=== PATIENT | female | born 1935 | race Caucasian/White ===

== ENCOUNTER 2019-06-10 22:42 | Inpatient (IN) | payer OTHER ==
[~2019-06-10] VITALS: Ht 162.6 cm; Wt 75.1 kg
[2019-06-10] MEDS ORDERED: LABETALOL HCL 5 MG/ML 20 ML VIAL IVP ONE (22:55)
[2019-06-10] MEDS ORDERED: NICARDipine 20 MG/DEXT,ISO-OSM 200 ML IV PRN (23:00)
[2019-06-10] MEDS ORDERED: HydrALAZINE HCL 20 MG/ML VIAL ONE (23:00)
[2019-06-10] MEDS ORDERED: HydrALAZINE HCL 20 MG/ML VIAL IVP ONE (23:00)
[2019-06-10 23:06] LABS: INR 1.1 (0.9-1.1)
[2019-06-10 23:11] LABS: ANION GAP 13 mmol/L (8-16); BASOPHILS % (AUTO) 0.2 % (0.0-2.0); CALCIUM, TOTAL 9.4 mg/dL (8.8-10.5); CARBON DIOXIDE 23 mmol/L (22-29); CHLORIDE 101 mmol/L (98-107); CREATININE 0.86 mg/dL (0.60-1.30); EOSINOPHILS % (AUTO) 0 % (1.0-6.0); GLUCOSE,RANDOM 187 mg/dL (70-110); HEMATOCRIT 37.6 % (36-46); HEMOGLOBIN 12.6 g/dL (12.0-16.0); LYMPHOCYTES # (AUTO) 0.7 K/uL (1.0-4.8); LYMPHOCYTES % (AUTO) 7.5 % (22.0-44.0); MEAN CORPUSCULAR HEMOGLOBIN 31.9 pg (26.0-34.0); MEAN CORPUSCULAR HGB CONC 33.6 G/dL (31.0-37.0); MEAN CORPUSCULAR VOLUME 95 fL (80-100); MONOCYTES # (AUTO) 0.3 K/uL (0.1-1.0); MONOCYTES % (AUTO) 2.7 % (2.0-9.0); NEUTROPHILS # (AUTO) 8.5 K/uL (1.8-7.7); PLATELET COUNT (AUTO) 170 K/uL (150-450); RED BLOOD CELL COUNT(AUTO) 3.96 MIL/uL (4.00-5.20); RED CELL DISTRIBUTION WIDTH 13.7 % (11.5-14.5); SODIUM SERUM 137 mmol/L (136-145); UREA NITROGEN, BLOOD 18 mg/dL (7-18)
[2019-06-10 23:12] LABS: GLOMERULAR FILTR. RATE CALC > 60 mL/min (>60)
[2019-06-10] MEDS ORDERED: BISACODYL 10 MG RECTAL RECTAL SUPPOSITORY PR PRN (23:15)
[2019-06-10] MEDS ORDERED: ONDANSETRON HCL 4 MG/2 ML VIAL IVP PRN (23:15)
[2019-06-10] MEDS ORDERED: NiCARDipine HCL 25 MG in DEXTROSE 5%-WATER 240 ML IV PRN (23:15)
[2019-06-10 23:17] LABS: ALANINE AMINOTRANSFERASE 17 U/L (12-78); ALBUMIN 3.9 g/dL (3.4-5.0); ALKALINE PHOSPHATASE 94 U/L (46-116); ASPARTATE AMINOTRANSFERASE 21 U/L (15-37); BILIRUBIN,TOTAL 0.7 mg/dL (0.1-1.0); TOTAL PROTEIN, SERUM 7.2 g/dL (6.4-8.2)
[2019-06-10 23:26] LABS: NEUTROPHILS % (AUTO) 89.6 % (40.0-70.0)
[2019-06-10] MEDS ORDERED: DEXTROSE 50%-WATER 25 GM/50 ML SYRINGE IVP PRN (23:30)
[2019-06-10] MEDS ORDERED: INSULIN LISPRO 100 UNITS/ML SQ PRN (23:30)
[2019-06-10 23:40] LABS: APPEARANCE,URINE CLEAR (CLEAR); BILIRUBIN,URINE NEGATIVE (NEGATIVE); GLUCOSE, URINE (UA) NEGATIVE (NEGATIVE); KETONES,URINE 40 mg/dL (NEGATIVE); LEUKOCYTE ESTERASE ,URINE SMALL (NEGATIVE); NITRATE,URINE NEGATIVE (NEGATIVE); OCCULT BLOOD,URINE NEGATIVE (NEGATIVE); PROTEIN,URINE NEGATIVE (NEGATIVE); UROBILINOGEN,URINE 0.2 mg/dL (<=1.0)
[2019-06-10 23:45] LABS: AMPHET/METH SCREEN,URINE NEGATIVE (NEGATIVE); BARBITURATE SCREEN, URINE NEGATIVE (NEGATIVE); BENZODIAZEPINES SCREEN,URINE NEGATIVE (NEGATIVE); CANNABINOID SCREEN,URINE NEGATIVE (NEGATIVE); COCAINE SCREEN,URINE NEGATIVE (NEGATIVE); METHADONE SCREEN, URINE NEGATIVE (NEGATIVE); OPIATE SCREEN,URINE NEGATIVE (NEGATIVE)
[2019-06-11] VITALS (8 sets, daily range): BP systolic 93–143; BP diastolic 43–86
[2019-06-11 00:05] LABS: BACTERIA,URINE Rare /HPF (None Seen); RBC,URINE None Seen /HPF (0-2); SQUAMOUS EPITHELIAL CELL,UR Few /LPF (None Seen)
[2019-06-11 00:06] LABS: PHENCYCLIDINE SCREEN,URINE NEGATIVE (NEGATIVE)
[2019-06-11] MEDS ORDERED: NICARDipine 20 MG/DEXT,ISO-OSM 200 ML IV PRN (04:21)
[2019-06-11 04:41] LABS: GLUCOSE,POINT OF CARE 132 MG/DL (70-110)
[2019-06-11] MEDS ORDERED: NiCARDipine HCL 25 MG in DEXTROSE 5%-WATER 240 ML IV PRN (05:15)
[2019-06-11 05:17] LABS: BASOPHILS % (AUTO) 0.2 % (0.0-2.0); EOSINOPHILS % (AUTO) 0.1 % (1.0-6.0); HEMATOCRIT 37.6 % (36-46); HEMOGLOBIN 12.6 g/dL (12.0-16.0); LYMPHOCYTES # (AUTO) 2.2 K/uL (1.0-4.8); LYMPHOCYTES % (AUTO) 22.6 % (22.0-44.0); MEAN CORPUSCULAR HEMOGLOBIN 31.7 pg (26.0-34.0); MEAN CORPUSCULAR HGB CONC 33.4 G/dL (31.0-37.0); MEAN CORPUSCULAR VOLUME 95 fL (80-100); MONOCYTES # (AUTO) 0.7 K/uL (0.1-1.0); MONOCYTES % (AUTO) 6.6 % (2.0-9.0); NEUTROPHILS % (AUTO) 70.5 % (40.0-70.0); PLATELET COUNT (AUTO) 162 K/uL (150-450); RED BLOOD CELL COUNT(AUTO) 3.96 MIL/uL (4.00-5.20); RED CELL DISTRIBUTION WIDTH 13.6 % (11.5-14.5)
[2019-06-11 05:36] LABS: ANION GAP 10 mmol/L (8-16); CALCIUM, TOTAL 9.4 mg/dL (8.8-10.5); CARBON DIOXIDE 26 mmol/L (22-29); CHLORIDE 103 mmol/L (98-107); CREATININE 0.78 mg/dL (0.60-1.30); GLUCOSE,RANDOM 143 mg/dL (70-110); POTASSIUM 3.9 mmol/L (3.5-5.1); SODIUM SERUM 139 mmol/L (136-145); UREA NITROGEN, BLOOD 16 mg/dL (7-18)
[2019-06-11 05:38] LABS: GLOMERULAR FILTR. RATE CALC > 60 mL/min (>60)
[2019-06-11] MEDS: ACETAMINOPHEN 325 MG TABLET PO PRN (22:45)
[2019-06-12] VITALS (7 sets, daily range): BP systolic 124–161; BP diastolic 55–95
[2019-06-12 01:50] LABS: GLUCOSE,POINT OF CARE 151 MG/DL (70-110)
[2019-06-12 01:50] LABS: GLUCOSE,POINT OF CARE 122 MG/DL (70-110)
[2019-06-12 01:50] LABS: GLUCOSE,POINT OF CARE 108 MG/DL (70-110)
[2019-06-12 05:00] LABS: BASOPHILS % (AUTO) 0.6 % (0.0-2.0); EOSINOPHILS % (AUTO) 2.9 % (1.0-6.0); HEMATOCRIT 36.5 % (36-46); HEMOGLOBIN 12.3 g/dL (12.0-16.0); LYMPHOCYTES # (AUTO) 3.1 K/uL (1.0-4.8); MEAN CORPUSCULAR HEMOGLOBIN 32.2 pg (26.0-34.0); MEAN CORPUSCULAR HGB CONC 33.7 G/dL (31.0-37.0); MEAN CORPUSCULAR VOLUME 95 fL (80-100); MONOCYTES # (AUTO) 0.7 K/uL (0.1-1.0); MONOCYTES % (AUTO) 7.7 % (2.0-9.0); NEUTROPHILS # (AUTO) 4.7 K/uL (1.8-7.7); NEUTROPHILS % (AUTO) 53.8 % (40.0-70.0); PLATELET COUNT (AUTO) 151 K/uL (150-450); RED BLOOD CELL COUNT(AUTO) 3.83 MIL/uL (4.00-5.20); RED CELL DISTRIBUTION WIDTH 13.4 % (11.5-14.5)
[2019-06-12 05:13] LABS: ANION GAP 10 mmol/L (8-16); CARBON DIOXIDE 27 mmol/L (22-29); CHLORIDE 104 mmol/L (98-107); CREATININE 0.74 mg/dL (0.60-1.30); GLUCOSE,RANDOM 112 mg/dL (70-110); POTASSIUM 3.7 mmol/L (3.5-5.1); SODIUM SERUM 141 mmol/L (136-145); UREA NITROGEN, BLOOD 14 mg/dL (7-18)
[2019-06-12 05:15] LABS: GLOMERULAR FILTR. RATE CALC > 60 mL/min (>60)
[2019-06-12 07:01] LABS: GLUCOSE,POINT OF CARE 107 MG/DL (70-110)
[2019-06-12] MEDS ORDERED: IOVERSOL 350 MG/ML 100 ML VIAL ONE (10:06)
[2019-06-12] MEDS ORDERED: SODIUM CHLORIDE 0.9% 100 ML ONE (10:07)
[2019-06-12] MEDS: ACETAMINOPHEN 325 MG TABLET PO PRN (16:01)
[2019-06-13 04:53] VITALS: BP 157/85
[2019-06-13] MEDS: ACETAMINOPHEN 325 MG TABLET PO PRN ×2 (05:52→11:31)
[2019-06-13 07:20] VITALS: BP 145/50
[2019-06-13 09:50] LABS: GLUCOMETER DEV NAME(LOC) 5N.2; GLUCOSE,POINT OF CARE 125 MG/DL (70-110)
[2019-06-13 09:50] LABS: GLUCOMETER DEV NAME(LOC) 5N.2; GLUCOSE,POINT OF CARE 113 MG/DL (70-110)
[2019-06-13 09:51] LABS: GLUCOMETER DEV NAME(LOC) 5N.1; GLUCOSE,POINT OF CARE 138 MG/DL (70-110)
[2019-06-13 20:10] LABS: GLUCOMETER DEV NAME(LOC) 5S.1; GLUCOSE,POINT OF CARE 116 MG/DL (70-110)
== END 2019-06-13 13:37 | disposition short-term general hospital (02) | DRG 65 ==
LOC: EMS 22:44 → ICU 06-11 00:30 → 5S 06-12 14:40
PROVIDERS: ADMIT Internal Medicine; ATTEND Internal Medicine
DX: I60.7 Nontraumatic subarachnoid hemorrhage from unspecified intracranial artery (principal); G91.1 Obstructive hydrocephalus; E11.9 Type 2 diabetes mellitus without complications; I10 Essential (primary) hypertension; E78.00 Pure hypercholesterolemia, unspecified; E78.5 Hyperlipidemia, unspecified
CPT/HCPCS: 70450; 70496; 86850; 86900; 86901; 87081; 92610; 93005; 93306; 93880; 96365; 97162; 97167; 97535; G0378; J0360; J3490; J7050; J7060

== ENCOUNTER 2021-02-11 10:05 | Emergency (ER) | payer OTHER, MEDICAID ==
[~2021-02-11] VITALS: Ht 165.1 cm; Wt 81.8 kg
[2021-02-11] MEDS ORDERED: LEVO88TA4 PO (10:32)
[2021-02-11] MEDS ORDERED: ATOR20TA86 PO (10:32)
[2021-02-11] MEDS ORDERED: METF-960 PO (10:32)
[2021-02-11] MEDS ORDERED: GLUC-111 PO (10:32)
[2021-02-11] MEDS ORDERED: CICL90CR11 TP (10:32)
[2021-02-11] MEDS ORDERED: LOSA50TA37 PO (10:32)
[2021-02-11] MEDS ORDERED: CHOL200016 PO (10:32)
[2021-02-11] MEDS ORDERED: ASPI-1444 PO (10:32)
[2021-02-11] MEDS ORDERED: AMLO-258 PO (10:32)
[2021-02-11] MEDS ORDERED: VIT1CAPS5 PO (10:32)
[2021-02-11] MEDS ORDERED: EMPA10TA PO (10:32)
[2021-02-11] MEDS ORDERED: PANT-31 PO (10:32)
[2021-02-11 12:04] LABS: BASOPHILS % (AUTO) 0.6 % (0.0-2.0); EOSINOPHILS % (AUTO) 1.9 % (1.0-6.0); HEMATOCRIT 45.1 % (36-46); HEMOGLOBIN 14.7 g/dL (12.0-16.0); LYMPHOCYTES # (AUTO) 3.7 K/uL (1.0-4.8); LYMPHOCYTES % (AUTO) 28.6 % (22.0-44.0); MEAN CORPUSCULAR HEMOGLOBIN 29.5 pg (26.0-34.0); MEAN CORPUSCULAR HGB CONC 32.5 G/dL (31.0-37.0); MEAN CORPUSCULAR VOLUME 91 fL (80-100); MONOCYTES # (AUTO) 0.6 K/uL (0.1-1.0); MONOCYTES % (AUTO) 4.5 % (2.0-9.0); NEUTROPHILS # (AUTO) 8.3 K/uL (1.8-7.7); NEUTROPHILS % (AUTO) 64.4 % (40.0-70.0); PLATELET COUNT (AUTO) 129 K/uL (150-450); RED BLOOD CELL COUNT(AUTO) 4.97 MIL/uL (4.00-5.20)
[2021-02-11 12:15] LABS: ANION GAP 17 mmol/L (8-16); CALCIUM, TOTAL 10.2 mg/dL (8.8-10.5); CARBON DIOXIDE 24 mmol/L (22-29); CHLORIDE 102 mmol/L (98-107); CREATININE 0.81 mg/dL (0.60-1.30); GLUCOSE,RANDOM 148 mg/dL (70-110); POTASSIUM 4.6 mmol/L (3.5-5.1); SODIUM SERUM 143 mmol/L (136-145); UREA NITROGEN, BLOOD 34 mg/dL (7-18)
[2021-02-11 12:18] LABS: ALANINE AMINOTRANSFERASE 28 U/L (12-78); ALBUMIN 4.3 g/dL (3.4-5.0); ALKALINE PHOSPHATASE 128 U/L (46-116); ASPARTATE AMINOTRANSFERASE 20 U/L (15-37); BILIRUBIN,TOTAL 0.5 mg/dL (0.1-1.0); GLOMERULAR FILTR. RATE CALC > 60 mL/min (>60); TOTAL PROTEIN, SERUM 8.2 g/dL (6.4-8.2)
[2021-02-11 13:41] VITALS: BP 157/39
== END 2021-02-11 15:00 | disposition home or self-care (01) ==
LOC: EMS 10:05
DX: M48.061 Spinal stenosis, lumbar region without neurogenic claudication (principal); E11.9 Type 2 diabetes mellitus without complications; E78.00 Pure hypercholesterolemia, unspecified; I10 Essential (primary) hypertension; F17.200 Nicotine dependence, unspecified, uncomplicated; Z79.84 Long term (current) use of oral hypoglycemic drugs; W19.XXXA Unspecified fall, initial encounter; Y93.89 Activity, other specified; Y92.89 Other specified places as the place of occurrence of the external cause; Y99.8 Other external cause status
CPT/HCPCS: 70450; 72125; 72131; 72170; 99285